=== PATIENT | male | born 1935 | race Caucasian/White ===

== ENCOUNTER 2017-03-29 10:14 | Emergency (ER) | payer OTHER ==
[~2017-03-29] VITALS: Ht 180.3 cm; Wt 90.7 kg
[2017-03-29] MEDS ORDERED: IBUPROFEN 600600 M1 PO (10:47)
[2017-03-29] MEDS ORDERED: FLEXERIL PO (10:47)
[2017-03-29 11:27] VITALS: BP 184/76
== END 2017-03-29 11:28 | disposition home or self-care (01) ==
LOC: ER 10:14
DX: M43.6 Torticollis (principal)